=== PATIENT | female | born 1960 | race Hispanic/Latino ===

== ENCOUNTER 2021-07-13 10:41 | Outpatient (CLI) | payer BC ==
--- NOTE | 2021-07-13 13:47 | Cat Scan Report ---
CT ABDOMEN AND PELVIS WITHOUT CONTRAST INDICATION / CLINICAL INFORMATION: CALCULUS OF KIDNEY. TECHNIQUE: Axial CT images were obtained through the abdomen and pelvis without IV contrast. All CT scans at [facility] location are performed using CT dose reduction for ALARA by means of automated exposure control. COMPARISON: None available. FINDINGS: LOWER CHEST: No significant abnormality. LIVER: fatty liver. GALLBLADDER: Removed. BILE DUCTS: No significant abnormality. PANCREAS: No significant abnormality. SPLEEN: No significant abnormality. ADRENALS: No significant abnormality. RIGHT KIDNEY and URETER: Nephrectomy. LEFT KIDNEY and URETER: Several 1 mm calculi scattered within the left kidney. No hydronephrosis.. STOMACH and SMALL BOWEL: No significant abnormality. COLON: No significant abnormality. APPENDIX: No significant abnormality. PERITONEUM: No free fluid. No free air. No fluid collection. LYMPH NODES: No significant adenopathy. AORTA and ARTERIES: Scattered atherosclerotic calcification. IVC and VEINS: No significant abnormality. URINARY BLADDER: Mostly collapsed and difficult to evaluate. REPRODUCTIVE ORGANS: No significant abnormality. ADDITIONAL FINDINGS: None. SKELETAL SYSTEM: Extensive lumbar spine postsurgical change. Multilevel laminectomy.. IMPRESSION: 1. Nonobstructive left-sided nephrolithiasis. 2. Right-sided nephrectomy. 3. Severe atherosclerotic calcification of the abdominal aorta. Signer Name: Yousif Jiménez MD Signed: 07/13/2021 1:43 PM Workstation Name: [email or web address]
== END 2021-07-13 10:42 | disposition home or self-care (01) ==
LOC: CT 10:41
PROVIDERS: ATTEND Urology
DX: N20.0 Calculus of kidney (principal); I70.0 Atherosclerosis of aorta; Z90.5 Acquired absence of kidney
CPT/HCPCS: 74176